=== PATIENT | female | born 2000 | race Caucasian/White ===

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

== ENCOUNTER 2020-03-19 00:42 | Emergency (ER) | payer OTHER ==
[~2020-03-19 00:42] MED LIST: OMNICEF 300 MG300 MG PO; PYRIDIUM100 MG PO
[2020-03-19 02:08] LABS: HEMOGLOBIN 12.3 gm/dl (12.3-15.3); RED BLOOD COUNT 4.25 M/UL (4.00-5.10); WHITE BLOOD COUNT 8.2 K/UL (4.5-11.0)
[2020-03-19 02:28] LABS: BUN/CREATININE RATIO 18 (0-10)
[2020-03-19] MEDS ORDERED: PYRIDIUM200 MG PO (03:11)
[2020-03-19] MEDS ORDERED: MACROBID 100 M100 M1 PO (03:11)
== END 2020-03-19 03:26 | disposition home or self-care (01) ==
LOC: ER1 00:42
PROVIDERS: Family Medicine
DX: N39.0 Urinary tract infection, site not specified (principal); R25.2 Cramp and spasm; N20.0 Calculus of kidney; K59.00 Constipation, unspecified; F84.0 Autistic disorder
CPT/HCPCS: 74018; 80053; 81001; 84703; 85025; 87077; 87086; 87186; 99284